=== PATIENT | male | born 1995 | race American Indian/Alaskan Native ===

== ENCOUNTER 2021-06-01 13:05 | Emergency (ER) | payer OTHER ==
[2021-06-01] MEDS ORDERED: ACETAMINOPHEN 325 MG/10.15 ML ORAL LIQD UNIT DOSE ONE (13:59)
[2021-06-01] MEDS ORDERED: ACETAMINOPHEN 325 MG TAB PO ONE (14:01)
[2021-06-01] MEDS ORDERED: SODIUM CHLORIDE 0.9% 1000 ML 1,000 ML IV ONE (16:02)
[2021-06-01 16:32] LABS: Hematocrit 48.6 % (35.5-45.6); Hemoglobin 16.3 gm/dl (11.8-15.2); Mean Corpuscular HGB Conc 34 % (32-34); Mean Corpuscular Volume 83 fl (84-94); Platelet Count 138 K/mm3 (140-440); Red Blood Count 5.89 M/mm3 (3.65-5.03); Red Cell Distribution Width 14.3 % (13.2-15.2)
[2021-06-01 16:51] LABS: Alanine Aminotransferase 38 units/L (7-56); BUN/Creatinine Ratio 6; Blood Urea Nitrogen 7 mg/dL (9-20); Calcium 8.2 mg/dL (8.4-10.2); Hemolysis Index 15
[2021-06-01 17:58] VITALS: BP 138/84
[2021-06-01 17:58] LABS: Total Cells Counted 100
[2021-06-01 17:59] LABS: RBC Morphology Normal
--- NOTE | 2021-06-01 18:06 | Emergency Department Report ---
ED General Adult HPI - General Chief complaint: Fever Stated complaint: STOMACH PAIN,FATIGUE WEAKNESS Time Seen by Provider: 06/01/21 15:48 Source: patient Mode of arrival: Ambulatory Limitations: No Limitations - History of Present Illness Initial comments: 25-year-old male presents to the ER today with flulike/Covid-like symptoms. Patient states the symptoms started about 1 week ago. Patient reports that he has had generalized fatigue, chills, headache, intermittent body aches, decreased appetite, intermittent abdominal cramps, and intermittent diaphoresis. He denies any apparent ill contacts or known COVID-19 contacts. He denies any traveling. He states that he is not taking a COVID-19 test since his symptoms started. He has not taken COVID-19 vaccine. He denies any cough, shortness of breath, rhinorrhea, nasal congestion, sore throat, UTI symptoms, nausea, vomiting or diarrhea. He denies any underlying significant past medical his tory. He denies any tobacco abuse or illicit drug use. MD Complaint: flu-like/COVID like symptoms -: week(s) (1) Severity scale (0 -10): 3 - Related Data Previous Rx's Medication Instructions Recorded Last Taken Type Ibuprofen [Motrin] 800 mg PO Q8HR PRN #30 tablet 06/01/21 Unknown Rx Allergies Allergy/AdvReac Type Severity Reaction Status Date / Time No Known Allergies Allergy Unverified 06/01/21 13:57 ED Review of Systems ROS: Stated complaint: STOMACH PAIN,FATIGUE WEAKNESS Other details as noted in HPI Comment: All other systems reviewed and negative Constitutional: chills, fever (Subjective) Eyes: denies: eye pain, eye discharge, vision change ENT: denies: ear pain, throat pain, dental pain, hearing loss, epistaxis, congestion Respiratory: denies: cough, shortness of breath, SOB with exertion, SOB at rest, wheezing Cardiovascular: denies: chest pain, palpitations, dyspnea on exertion, orthopnea, edema, syncope, paroxysmal nocturnal dyspnea Endocrine: no symptoms reported Gastrointestinal: abdominal pain. denies: nausea, vomiting, diarrhea, constipation, hematemesis, hematochezia Genitourinary: denies: urgency, dysuria, frequency, hematuria, discharge, testicular pain, testicular mass Musculoskeletal: myalgia. denies: back pain, joint swelling, arthralgia Skin: denies: rash, lesions, change in color, change in hair/nails, pruritus Neurological: denies: headache, weakness, numbness, paresthesias, confusion, abnormal gait, vertigo Psychiatric: denies: anxiety, depression, auditory hallucinations, visual hallucinations, homicidal thoughts, suicidal thoughts Hematological/Lymphatic: denies: easy bleeding, easy bruising ED Past Medical Hx - Past Medical History Previous Medical History?: No - Surgical History Past Surgical History?: No - Medications Home Medications: Home Medications Medication Instructions Recorded Confirmed Last Taken Type Ibuprofen [Motrin] 800 mg PO Q8HR PRN #30 tablet 06/01/21 Unknown Rx ED Physical Exam - General Limitations: No Limitations General appearance: alert, in no apparent distress - Head Head exam: Present: atraumatic, normocephalic, normal inspection - Eye Eye exam: Present: normal appearance, PERRL, EOMI Pupils: Present: normal accommodation - ENT ENT exam: Present: normal orophraynx, mucous membranes dry, TM's normal bilaterally - Neck Neck exam: Present: normal inspection, full ROM. Absent: meningismus - Respiratory Respiratory exam: Present: normal lung sounds bilaterally. Absent: respiratory distress, wheezes, rales, rhonchi, stridor - Cardiovascular Cardiovascular Exam: Present: regular rate, normal rhythm, normal heart sounds - GI/Abdominal GI/Abdominal exam: Present: soft. Absent: distended, tenderness, guarding, rebound - Neurological Exam Neurological exam: Present: alert, oriented X3, CN II-XII intact, normal gait - Psychiatric Psychiatric exam: Present: normal affect, normal mood - Skin Skin exam: Present: intact ED Course Vital Signs 06/01/21 06/01/21 13:57 17:57 Temperature 101.4 F H 99.7 F H Pulse Rate 91 H 84 Respiratory 16 16 Rate Blood Pressure 130/78 138/84 [Right] O2 Sat by Pulse 98 97 Oximetry ED Medical Decision Making - Lab Data Result diagrams: 06/01/21 16:20 06/01/21 16:20 - Medical Decision Making CBC and CMP reviewed. CBC shows leukopenia with a white count of 2.9, but according to the absolute neutrophil calculator on [facility], patient is not neutropenic. CMP unremarkable. Patient reports feeling better after oral Tylenol and IV fluids. He currently is not toxic or ill-appearing and not in any acute pain or respiratory distress. He has no complaints of chest pain or shortness of breath. He has a soft nontender abdomen. He is repeat vitals after IV fluids and Tylenol. Suspect patient symptoms likely related to a viral illness including COVID-19. His history, exam, diagnostic testing and current condition do not demonstrate an infectious process such as meningitis, severe pneumonia, acute respiratory distress syndrome, appendicitis, cholecystitis, bowel perforation, polynephritis, sepsis or other serious viral/bacterial infection requiring further testing, treatment, consultation or admission at this time. Discussed all lab results with patient. Recommend that he get an outpatient COVID-19 test and he leaves the ER. Patient expressed understanding of all instructions and agree with plan. Patient was stable at time of discharge. Critical care attestation.: If time is entered above; I have spent that time in minutes in the direct care of this critically ill patient, excluding procedure time. ED Disposition Clinical Impression: Viral illness, Suspected COVID-19 virus infection Disposition: TO HOME OR SELFCARE Is pt being admited?: No Does the pt Need Aspirin: No Condition: Stable Instructions: COVID-19: How to Protect Yourself and Others - CDC, Viral Illness, Adult, Prevent the Spread of COVID-19 if You Are Sick - CDC Additional Instructions: I recommend that you get an outpatient COVID-19 test when you leave the ER. Recommend that you quarantine until you get your test results. I recommend that you take the ibuprofen as prescribed to help with pain and or fever. You can also alternate with Tylenol. Recommend he continue monitoring your temperatures. Drink lots of fluids. Follow-up closely with your primary care doctor. Return to the ER if your symptoms changes or worsens in any way. Prescriptions: Ibuprofen [Motrin] 800 mg PO Q8HR PRN #30 tablet PRN Reason: pain Referrals: [facility] [Provider Group] - 3-5 Days Forms: Work/School Release Form(ED) Time of Disposition: 18:06
== END 2021-06-01 18:38 | disposition home or self-care (01) ==
LOC: ED 13:05
DX: B34.9 Viral infection, unspecified (principal); R53.83 Other fatigue; R51.9 Headache, unspecified; M79.18 Myalgia, other site
CPT/HCPCS: 36415; 80053; 85007; 85025; 96360; 99283; J7030

== ENCOUNTER 2022-03-19 00:13 | Emergency (ER) | payer SELFPAY | END 2022-03-19 01:40 | disposition left against medical advice (07) | LOC: ED 00:13 | DX: R51.9 Headache, unspecified (principal); Z53.21 Procedure and treatment not carried out due to patient leaving prior to being seen by health care provider ==